=== PATIENT | female | born 1980 | race Asian ===

== ENCOUNTER → 2018-07-21 | Outpatient (CLI) | payer BC ==
--- NOTE | 2018-07-21 16:03 | Diagnostic Imaging Report ---
Thyroid ultrasound dated 07/21/2018 History: Nodule Comparison: <None available>. Discussion: Transverse and longitudinal images of the thyroid were obtained demonstrating normal echogenicity of the thyroid. The sizes of the lobes are normal with the right thyroid lobe measuring 5.4 x 2.0 x 3.0 cm and the left measuring 5.0 x 1.2 x 1.6 cm. The isthmus is within normal limits measuring 0.2 cm. Mixed cystic and solid component nodule in the midpole of the right thyroid lobe measures 3.3 x 1.6 x 2.7 cm. By size this meets criteria for biopsy. Second small hypoechoic nodule with a septation is present inferior and medial to this large nodule measuring 6 x 4 x 6 mm. Small echogenic nodule in the lateral inferior aspect of the left thyroid lobe measures 7 x 3 x 3 mm. IMPRESSION: Mixed cystic and solid right thyroid nodule meets criteria for biopsy. Signed by: Dr. Favio Velasco DO on 07/21/2018 4:00 PM
== END ==
LOC: US 11:08
PROVIDERS: ATTEND Internal Medicine
DX: E04.1 Nontoxic single thyroid nodule (principal)
CPT/HCPCS: 76536

== ENCOUNTER → 2018-08-23 | Outpatient (CLI) | payer BC ==
--- NOTE | 2018-08-23 11:53 | Diagnostic Imaging Report ---
Ultrasound guided thyroid FNA. History: Thyroid nodule. Comparison: Prior thyroid ultrasound performed at this institution dated 07/21/2018. Discussion: Transverse and longitudinal images of the thyroid were obtained demonstrating the large mixed cystic and solid mass in the right lobe of the thyroid measuring 3.1 x 1.4 x 2.9 cm. After informed consent was obtained, the patient's neck was prepped and draped in a sterile fashion. The skin was anesthetized with 1% lidocaine without epinephrine. Using ultrasound guidance, the right mixed cystic and solid mass was aspirated using 25-gauge needles. A total of 5 samples were given to pathology. The patient tolerated procedure well without evidence of immediate complication. IMPRESSION: Successful ultrasound guided thyroid fine needle aspiration. Signed by: Dr. Favio Velasco DO on 08/23/2018 11:50 AM
== END ==
LOC: US 07:33
PROVIDERS: ATTEND Internal Medicine
DX: E04.1 Nontoxic single thyroid nodule (principal)
CPT/HCPCS: 10005; 88112; 88172; 88173

== ENCOUNTER → 2019-01-31 | Outpatient (CLI) | payer BC ==
--- NOTE | 2019-01-31 13:24 | Diagnostic Imaging Report ---
EXAM: US THYROID DATE: 01/31/2019 12:48 PM INDICATION: Thyroid nodules COMPARISON: Thyroid FNA from 08/23/2018, thyroid ultrasound from 07/21/2018. FINDINGS: The right thyroid lobe is enlarged measuring 5.4 x 2.6 x 3.8 cm. There is a mixed solid and cystic nodule identified within the mid right thyroid lobe measuring 3.6 x 2.4 x 3.2 cm, previously 3.3 x 1.6 x 2.7 cm. There is an additional hypoechoic nodule within the inferior right thyroid lobe measuring 0.7 x 0.4 x 0.5 cm, previously 0.6 x 0.4 x 0.6 cm. No nodules are identified. The isthmus measures 2 mm in thickness and appears unremarkable. The left thyroid lobe is normal in size measuring 4.8 x 1.2 x 1.7 cm. No focal nodules are identified within the left thyroid lobe. IMPRESSION: Stable appearing right thyroid nodules. The dominant right thyroid nodule has previously undergone fine-needle aspiration, recommend correlation with prior cytopathology results. Signed by: Dr. Ned Nino MD on 01/31/2019 1:21 PM
== END ==
LOC: US 12:39
PROVIDERS: ATTEND Internal Medicine
DX: E04.1 Nontoxic single thyroid nodule (principal)
CPT/HCPCS: 76536